=== PATIENT | male | born 1965 | race Caucasian/White ===

== ENCOUNTER → 2018-09-13 | Outpatient (CLI) | payer BC ==
[~2018-09-13] MED LIST: AMLO10TA6 PO; AMOX1TAB58 PO; IBUP-1060 PO; IOHEXOL 180 MG/ML 10 ML VIAL. ONE; LIDOCAINE 1% PF 2 ML VIAL. ONE; LOSA100T7 PO; methylPREDNISolone ACETATE 40 MG/ML VIAL. ONE; methylPREDNISolone ACETATE 80 MG/ML VIAL. ONE
--- NOTE | 2018-09-13 09:40 | PAIN ---
DATE OF SERVICE: 09/13/2018 INITIAL CONSULTATION FOR PAIN CLINIC CHIEF COMPLAINT: Low back and left lower extremity pain. HISTORY OF PRESENT ILLNESS: This is a 53-year-old male who presents with history of pain for many years, increasing over about the past 6 months in the low back and left lower extremity. The patient reports the pain is radiating across the low back bilaterally into the left posterior gluteus, posterior thigh, posterior calf, occasionally into the foot but generally just into the hip and thigh on the left side. The patient reports it is a constant, sharp, becoming more tingling with numbness, aching, shooting pain as well worse with standing, walking, changing positions; better with sitting or lying down; does not generally awaken him from sleep every night but once or twice a week will waken him from sleep usually when he is lying on his left side. The patient reports it does not affect his bowel or bladder control but does affect his ability to walk with significant fatigability in the left leg as well. The patient reports some pain across the low back on the right side but not into the right lower extremity. The patient has had previous epidural injections in the past as well as physical therapies. He is doing some stretching and strengthening exercises on his own but no formal physical therapy here recently. The patient reports no loss of motor function again but significant fatigability and rates his disability rate from 0-10, 10 being the worst, is a 5 with family and home responsibilities, 8 with recreation, 6 with social activity, occupation, sexual behavior, self-care and 5 with life support activities. The patient did have MRI scan dated 08/10/2018 showing L4-L5, mild broad-based disk bulging centrally with mild central canal stenosis; L5-S1 shows mild generalized disk osteophyte complex and small left paracentral focal disk herniation near the left lateral recess and proximal left S1 nerve root with mild central canal stenosis as well and mild bilateral neural foraminal stenosis at that level. The patient reports no bowel or bladder incontinence or other complaints but still significant pain in the low back and left leg as described. PAST MEDICAL HISTORY: Significant for hypertension, cigarette smoking about 10 cigarettes a day for the past 10 years. He has been otherwise fairly good health. PAST SURGICAL HISTORY: No previous surgeries. CURRENT MEDICATIONS: Include ibuprofen, losartan and amlodipine. ALLERGIES: The patient has no known drug allergies. FAMILY HISTORY: Significant for no major medical problems or conditions that he is aware of. SOCIAL HISTORY: The patient smokes again about 10 cigarettes a day for about 10 years. Drinks alcohol very rarely. Does not use any illegal, illicit or recreational drugs. He is and lives with his spouse and 2 children at home, lives locally in [place], [place]. Works as an motor electrician. REVIEW OF SYSTEMS: The patient's review of systems is positive for those items mentioned in history of present illness. All systems reviewed and otherwise negative. It is complete, full and well documented on the patient's chart. PHYSICAL EXAMINATION: VITAL SIGNS: The patient's blood pressure is 149/105, pulse 67, respirations 16, temperature 98.0 degrees Fahrenheit, height is 6 feet 2 inches and weight is 176 pounds. GENERAL: The patient is awake, alert, oriented, appropriate and very pleasant demeanor. HEENT: Head shows normocephalic and atraumatic. Extraocular movements are intact and symmetrical. Oral cavity: Mucous membranes moist and pink. Dentition is intact. NECK: Shows anterior throat supple without palpable lymphadenopathy noted. Swallow reflex symmetrical. CHEST: Shows normal with inspection. Breath sounds clear to auscultation bilaterally. HEART: Shows S1 and S2 clear. No murmurs auscultated. ABDOMEN: Soft, nontender and nondistended. No palpable organomegaly is noted. No rebound or guarding demonstrated. BACK: Shows spine grossly in the midline. Normal appearing thoracic kyphosis and lumbar lordotic curvature. Lumbar paraspinous muscle shows symmetrical on inspection with palpation shows some moderate tenderness diffusely bilaterally but only diffusely in the low lumbar distribution without atrophy, hypertrophy or asymmetry. The patient's back shows good rotational motion both laterally greater than 10 degrees, right and left as well as extension greater than 10 degrees, forward flexion 45 degrees without difficulty. EXTREMITIES: The patient's lower extremities show deep tendon reflexes at 2+ in the patellar, 1+ tendo-calcaneus tendons and equal. Motor exam is strong with 5/5 dorsiflexion, extension, quadriceps and hamstring flexion and symmetrical. Peripheral pulses are 1+ posterior tibia. No peripheral edema is noted. Lower extremities are warm and dry to touch, equal in color and appearance. Straight leg raising noted to be mildly positive on the left with about 40-45 degrees leg raise but decreased with knee flexion, right side is negative. Gaenslen's and Genaro's maneuvers are negative bilaterally. The patient is able to stand, stand on his toes without significant difficulty or loss of balance, walks with a normal-appearing gait for short distance in the office, not using any assistive devices. The patient's skin shows warm and dry, good turgor. No edema. No sores, rashes or bruising. IMPRESSION: 1. This is a 53-year-old male with a long history of low back pain, left lower extremity pain with recent exacerbation in the past 3-4 months, 6 months at least without loss of significant motor function but significant radicular pain as noted. 2. MRI scan as noted. 3. Cigarette smoking. PLAN: Options were discussed with the patient including conservative medical management with physical therapy, interventional techniques. He would like to pursue interventional techniques. We discussed a lumbar epidural steroid injection using description as well as anatomical models to describe the procedure. Risks were then discussed including, but not limited to bleeding, infection, possibility of epidural hematoma, subsequent neurological compromise, dural puncture, headaches, spinal cord and/or nerve damage, side effects of steroid medication and poor results regarding pain control. The patient understands and wished to proceed. The patient will return to the clinic in approximately 2 weeks for followup, was counseled as to return appointment, activity level and side effects to be aware of. DIAGNOSES: Lumbar radiculopathy with lumbar degenerative disk disease and lumbar herniated disk. PROCEDURE: Lumbar epidural steroid injection, translaminar approach, L5-S1 level using C-arm fluoroscopic guidance under sterile prep and drape using local anesthetic. MEDICATION INJECTED: A total of 120 mg Depo-Medrol plus 5 mL of preservative-free normal saline and 2 mL of Isovue for contrast. CONDITION AT DISCHARGE: Stable. The patient tolerated the procedure well and had no complications. CYRUS JAMES MD DR: DACIA/meme JOB#: [id number] / [id number]
== END | disposition home or self-care (01) ==
LOC: PNCL 07:35
PROVIDERS: ATTEND Anesthesiology
DX: M51.16 Intervertebral disc disorders with radiculopathy, lumbar region (principal); I10 Essential (primary) hypertension; F17.210 Nicotine dependence, cigarettes, uncomplicated; Z79.899 Other long term (current) drug therapy; Z72.89 Other problems related to lifestyle
CPT/HCPCS: 62323; J1030; J1040; Q9965